=== PATIENT | female | born 1995 | race Caucasian/White ===

== ENCOUNTER 2019-06-03 16:56 | Emergency (ER) | payer BC, OTHER ==
[2019-06-03] MEDS ORDERED: LIDOCAINE 1%/EPINEPHRINE INJ 20 ML VIAL INJ ONE (18:36)
[2019-06-03] MEDS ORDERED: DIPH/PERTUSS(ACELL)/TETANUS VAC/PF 0.5 ML SYR (>=10YO) IM ONE (18:40)
--- NOTE | 2019-06-03 18:40 | ER Document Report ---
ED Extremity Problem, Lower - General Chief Complaint: Laceration Stated Complaint: LACERATION TO LEFT FOOT Time Seen by Provider: 06/03/19 18:25 TRAVEL OUTSIDE OF THE [place] IN LAST 30 DAYS: No - HPI Notes: 23-year-old female to the emergency department with complaints of a laceration to the top of her left foot that occurred last night at approximately 11 PM. She states she dropped a glass on and it cut it. She states she did not have a ride so she did not get seen until this evening. She attempted to go to urgent care first and when she got there they sent her here for further evaluation and repair. She states that she is not up-to-date on her tetanus immunization. She states that every time she tries to walk on it she has pain and it bleeds. She denies any other complaints. - Related Data Allergies/Adverse Reactions: No Known Allergies Allergy (Unverified 06/03/19 18:20) Past Medical History - General Information source: Patient - Social History Smoking Status: Current Every Day Smoker Frequency of alcohol use: None Drug Abuse: None Lives with: Spouse/Significant other Family History: Reviewed & Not Pertinent Patient has suicidal ideation: No Patient has homicidal ideation: No Review of Systems - Review of Systems Constitutional: denies: Chills, Fever EENT: No symptoms reported Cardiovascular: denies: Chest pain, Palpitations, Heart racing, Orthopnea, Synco pe, Dizziness, Lightheaded Respiratory: denies: Cough, Short of breath Gastrointestinal: denies: Abdominal pain, Diarrhea, Nausea, Vomiting Genitourinary: No symptoms reported Musculoskeletal: See HPI, Joint pain Skin: Other - Laceration to the left foot Hematologic/Lymphatic: No symptoms reported Neurological/Psychological: No symptoms reported -: Yes All other systems reviewed and negative Physical Exam - Vital signs Vitals: Temp Pulse Resp BP Pulse Ox 98.2 F 76 16 112/50 L 100 06/03/19 17:51 06/03/19 17:51 06/03/19 17:51 06/03/19 17:51 06/03/19 17:51 Interpretation: Normal - General General appearance: Appears well, Alert In distress: None - HEENT Head: Normocephalic, Atraumatic Eyes: Normal Pupils: PERRL Ears: Normal External canal: Normal Tympanic membrane: Normal Sinus: Normal Nasal: Normal Mouth/Lips: Normal Pharynx: Normal Neck: Normal - Respiratory Respiratory status: No respiratory distress Chest status: Nontender Breath sounds: Normal. No: Nonproductive cough, Rales, Rhonchi, Wheezing Chest palpation: Normal - Cardiovascular Rhythm: Regular Heart sounds: Normal auscultation Murmur: No - Abdominal Inspection: Normal Distension: No distension Bowel sounds: Normal Tenderness: Nontender Organomegaly: No organomegaly - Extremities General lower extremity: Tender - There is tenderness to palpation over the top of the left foot where patient has her laceration. There is no evidence for acute foreign body. There is no edema or deformity to suggest fracture. DP pulses are intact and equal. 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 It is approximately 3.5 cm in length and slightly elliptical in shape. He can see where he keeps pulling apart every time the patient walks and oozing some blood. On initial evaluation there is a lot of tenderness to palpation over the site but no duarte foreign body is visualized. Course - Re-evaluation Re-evalutation: 06/03/19 19:29 Impression: Left foot laceration. Patient tolerated repair well. 8 sutures were placed. Patient's injury happened at 11 PM last night which is within range for suture appointment within 24 hours but she is a little delayed so we will send home with Keflex to take. Also sent home with Naprosyn for pain. She requests crutches for the first several days so that she will not potentially burst the sutures. Suture removal in 10 days. - Vital Signs Vital signs: Temp Pulse Resp BP Pulse Ox 98.2 F 76 16 112/50 L 100 06/03/19 17:51 06/03/19 17:51 06/03/19 17:51 06/03/19 17:51 06/03/19 17:51 - Diagnostic Test Radiology reviewed: Image reviewed, Reports reviewed Procedures - Laceration/Wound Repair Left Dorsal Foot Time completed: 19:32 Wound length (cm): 3.5 Wound's Depth, Shape: Superficial Laceration pre-procedure: Sterile PPE donned, Sterile drapes applied, Shur-Clens applied Anesthetic type: 1% Lidocaine w/epi Volume Anesthetic (mLs): 3 Wound explored: Clean, No foreign body removed Irrigated w/ Saline (mLs): 50 Wound Debrided: Minimal Wound Repaired With: Sutures Suture Size/Type: 4:0 Number of Sutures: 8 - simple interrupted Post-procedure wound care: Sterile dressing applied Post-procedure NV exam normal: Yes Complications: No Discharge - Discharge Clinical Impression: Foot pain, left Foot laceration Qualifiers: Encounter type: initial encounter Laterality: left Qualified Code(s): S91.312A - Laceration without foreign body, left foot, initial encounter Condition: Stable Disposition: HOME, SELF-CARE Instructions: Laceration Care ([facility]), Tetanus Immunization Given ([facility]), Prophylactic Antibiotic ([facility]) Additional Instructions: COMPLETE ALL ANTIBIOTICS. KEEP WOUND CLEAN AND DRY. RETURN IF WORSENING PAIN, FEVERS, REDNESS, SWELLING, OR PUS DRAINING. Prescriptions: Cephalexin Monohydrate [Keflex 500 mg Capsule] 500 mg PO QID #40 capsule Naproxen [Naprosyn 375 Mg Tablet] 375 mg PO BID #20 tablet Forms: Return to Work Referrals: [facility] [Provider Group] - Follow up in 1 week
--- NOTE | 2019-06-03 19:15 | RADIOLOGY REPORT (SQ) ---
EXAM DESCRIPTION: FOOT LEFT COMPLETE COMPLETED DATE/TIME: 06/03/2019 7:04 pm REASON FOR STUDY: foot laceration, eval foriegn body COMPARISON: None. NUMBER OF VIEWS: Three views. TECHNIQUE: AP, lateral and oblique radiographic images acquired of the left foot. LIMITATIONS: None. FINDINGS: MINERALIZATION: Normal. BONES: No acute fracture or dislocation. No worrisome bone lesions. JOINTS: No effusions. SOFT TISSUES: No soft tissue swelling. No foreign body. OTHER: No other significant finding. IMPRESSION: No radiopaque soft tissue foreign body. No acute osseous abnormality. TECHNICAL DOCUMENTATION: JOB ID: [id number] XO1- All Rights Reserved Reading location - IP/workstation name: [email or web address]
[2019-06-03 20:03] VITALS: BP 105/58
== END 2019-06-03 20:15 | disposition home or self-care (01) ==
LOC: ER 16:56
DX: S91.312A Laceration without foreign body, left foot, initial encounter (principal); W25.XXXA Contact with sharp glass, initial encounter; Y93.G1 Activity, food preparation and clean up; F17.200 Nicotine dependence, unspecified, uncomplicated
CPT/HCPCS: 99282; 90471; 73630; 90715; 12002; J3490

== ENCOUNTER → 2019-11-03 | Outpatient (CLI) | payer OTHER ==
[2019-11-03 13:20] VITALS: BP 105/53
--- NOTE | 2019-11-03 13:20 | ER RDC ASSESSMENT REPORT ---
Intake - In the Last 14 days Have you traveled outside [place]?: No Have you been in close contact with someone CONFIRMED: No Worked in Healthcare?: No - Symptoms Subjective Fever(Ideal feverish): No Chills: No Muscule Aches: No Runny Nose: Yes Sore Throat: Yes Cough (New or worsening chronic cough): Yes Shortness of breath: Yes Nausea or Vomiting: No Headache: Yes Abdominal Pain: No Diarrhea(3 or more loose stools in last 24 hours): No - Do you have any of the following Chronic lung disease: Asthma or emphysema or COPD: No Cystic Fibrosis: No Diabetes: No High Blood Pressure: No Cardiovascular Disease: No Chronic Kidney Disease: No Chronic Liver Disease: No Chronic blood disorder like Sickle Cell Disease: No Weak immune system due to disease or medication: No Neurologic condition that limits movement: No Developmental delay - Moderate to Severe: No Recent (within past 2 weeks) or current : No Morbid Obesity (>100 pounds over ideal weight): No - Objective Temperature: 97.7 F Pulse Rate: 71 Respiratory Rate: 20 Blood Pressure: 105/53 O2 Sat by Pulse Oximetry: 99 Objective: Patient is a well-appearing 24-year-old female who presents today for COVID-19 screening. Disposition: Home; Selfcare General - General Stated Complaint: Upper respiratory symptoms x3 days Mode of Arrival: Ambulatory Information source: Patient Notes: The patient was evaluated during the global COVID-19 pandemic. That diagnosis was suspected/considered upon initial presentation. Their evaluation, treatment, and testing was consistent with current guidelines for patients who present with complaints or symptoms that may be related to COVID-19. - HPI Patient complains to provider of: Upper respiratory symptoms Onset: Other - Days Onset/Duration: Persistent Quality of pain: Achy Severity: Mild Pain Level: 2 Context: Generalized body aches Associated symptoms: Body/muscle aches, Nonproductive cough, Headache, Rhinnorhea, Shortness of breath, Sore throat Exacerbated by: Denies Relieved by: Denies Similar symptoms previously: No Recently seen / treated by doctor: No - Related Data Allergies/Adverse Reactions: No Known Allergies Allergy (Unverified 06/03/19 18:20) Past Medical History - Social History Smoking Status: Current Some Day Smoker Cigarette use (# per day): Yes - 1-2 every other day Chew tobacco use (# tins/day): No Smoking Education Provided: Yes Frequency of alcohol use: Occasional Drug Abuse: None 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 That diagnosis was suspected/considered upon initial presentation. Their evaluation, treatment, and testing was consistent with current guidelines for patients who present with complaints or symptoms that may be related to COVID-19. Diagnostic Results Laboratory Results: Patient advised at this time they are considered a Person Under Investigation (PUI) for the COVID-19 Coronavirus. They have been made aware it is currently taking 3-5 days to receive their results, and [facility] will call to advise them of their result, whether it is POSITIVE or NEGATIVE. Patient Education/Counseling Counseling/Education: Patient presents with upper respiratory symptoms worrisome for possible COVID- 19. Patient does not have symptoms worrisome as an emergency such as difficulty breathing, shortness of breath, chest pain, pressure, confusion or cyanosis. Patient appears suitable for discharge as they are not of an advanced age, do not have any chronic medical conditions such as diabetes, CAD, immune defici ency, chronic lung disease or chronic kidney disease. Patient's vital signs are stable and patient is nontoxic in appearance. Good return precautions have been discussed with patient, patient verbalized understanding and is agreeable with discharge plan of care at this time. Patient provided COVID-19 discharge instructions to include: As a person under investigation for COVID-19, the [place] department of Health and Human Services, division of public health advises you to adhere to the following guidance until your test results are reported to you. If your test result is positive, you will receive additional information from your provider and your local health department at that time. Remain at home until you are cleared by the health provider or public health authorities. Keep a log of visitors to your home, notify any visitors to your home of your isolation status. If you plan to move to a new address or leave the county, notify the local health department in your County. Call your doctor or seek care if you have an urgent medical need. Before seeking medical care, call ahead to get instructions from the provider before arriving at the medical office clinic or hospital. Notify them that you are being tested for the virus that causes COVID-19 so that arrangements can be made, as necessary, to prevent transmission to others in the healthcare setting. Next, notify the local health department in your county. If a medical emergency arises and you need to call 911, inform dispatch and the first responders that you are being tested for the virus that causes COVID-19. Next, notify the local health department in your county. Patient provided education on smoking cessation and the harmful effects of smoking, especially in the presence of Co-morbid conditions such as Hypertension, Diabetes, and/or other chronic illnesses. Patient verbalized understanding of smoking cessation education, and the increased health benefits of quitting. Guidance for worsening S/SX: For worsening symptoms, patient has been advised to contact their Primary Care Provider, or go to the nearest Emergency Department. RDC Discharge - Discharge Clinical Impression: COVID-19 Screening URI (upper respiratory infection) Qualifiers: URI type: unspecified URI Qualified Code(s): J06.9 - Acute upper respiratory infection, unspecified Condition: Stable Disposition: Home; Selfcare
== END ==
LOC: RDC 12:04
PROVIDERS: ATTEND Nurse Practitioner Family
DX: Z20.828 Contact with and (suspected) exposure to other viral communicable diseases (principal)
CPT/HCPCS: 87635; C9803; 99201; 99211

== ENCOUNTER → 2020-06-06 | Outpatient (CLI) | payer OTHER ==
--- NOTE | 2020-06-06 14:01 | ER RDC ASSESSMENT REPORT ---
Intake - In the Last 14 days Have you traveled outside [place]?: No Have you been in close contact with someone CONFIRMED: No Worked in Healthcare?: No - Symptoms Subjective Fever([place] feverish): Yes Chills: Yes Muscule Aches: Yes Runny Nose: Yes Sore Throat: Yes Cough (New or worsening chronic cough): Yes Shortness of breath: No Nausea or Vomiting: No Headache: Yes Abdominal Pain: No Diarrhea(3 or more loose stools in last 24 hours): No - Do you have any of the following Chronic lung disease: Asthma or emphysema or COPD: No Cystic Fibrosis: No Diabetes: No High Blood Pressure: No Cardiovascular Disease: No Chronic Kidney Disease: No Chronic Liver Disease: No Chronic blood disorder like Sickle Cell Disease: No Weak immune system due to disease or medication: No Neurologic condition that limits movement: No Developmental delay - Moderate to Severe: No Recent (within past 2 weeks) or current : No Morbid Obesity (>100 pounds over ideal weight): No Obesity Comment: Height 5 feet 4 inches weight 145 pounds - Objective Temperature: 98.1 F Pulse Rate: 77 Respiratory Rate: 18 Blood Pressure: 114/58 O2 Sat by Pulse Oximetry: 98 Objective: Given above, testing performed: If Testing Performed: Test Specimen Type Sent to General - General Information source: Patient Notes: Patient here at [facility] for Covid testing patient denies any known positive exposure to Covid that she is aware of started to have symptoms yesterday which included fever chills muscle aches runny nose sore throat and cough patient also has a headache. 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 Patient's PCP is with [facility] in [place] and has not notified them of her recent illness. - Related Data Allergies/Adverse Reactions: No Known Allergies Allergy (Unverified 06/03/19 18:20) Past Medical History - General Information source: Patient - Social History Smoking Status: Never Smoker Family History: Reviewed & Not Pertinent Physical Exam - General General appearance: Appears well, Alert In distress: None Notes: PHYSICAL EXAMINATION: GENERAL: Well-appearing and in no acute distress. HEAD: Atraumatic, normocephalic. EYES: sclera anicteric, conjunctiva are normal. ENT: nares patent. Moist mucous membranes. Tonsils red no exudate no swelling NECK: Normal range of motion, supple without lymphadenopathy LUNGS: CTAB and equal. No wheezes rales or rhonchi. Respirations even and unlabored lung sounds clear HEART: Regular rate and rhythm without murmurs ABDOMEN: Soft, nontender, normal bowel sounds, no guarding. EXTREMITIES: Normal range of motion, no pitting edema. No cyanosis. s NEUROLOGICAL: Cranial nerves grossly intact. Normal speech. Normal gait. PSYCH: Normal mood, normal affect. SKIN: Warm, Dry, normal turgor, no rashes or lesions noted Diagnostic Results Laboratory Results: Pending strep culture. Pending Covid testing results. Patient provided instruction regarding Covid to include: As a person under investigation for Covid 19, the [facility] of Health and Human Services, division of public health advises you to adhere to the following guidance until your test results are reported to you. If your test result is positive, you will receive additional information from your provider and your local health department at that time. Remain at home until you are cleared by the health provider or public health authorities. Keep a log of visitors to your home, notify any visitors to your home of your isolation status. If you plan to move to a new address or leave the county, notify the local health department in your County. Call your doctor or seek care if you have an urgent medical need. Before seeking medical care, call ahead to get instructions from the provider before arriving at the medical office clinic or hospital. Notify them that you are being tested for the virus that causes Covid 19 so that arrangements can be made, as necessary, to prevent transmission to others in the healthcare setting. Next, notify the local health department in your county. If a medical emergency arises and you need to call 911, inform the first responders that you are being tested for the virus that causes Covid 19. Next, notify the local health department in your county. Patient Education/Counseling Counseling/Education: Patient presents with upper respiratory symptoms worrisome for possible Covid 19. Patient does not have emergency worring symptoms such as difficulty breathing, shortness of breath, chest pain, pressure, confusion or cyanosis. Patient appears suitable for discharge. Patient instructed to follow-up with her PCP at [facility] in [place]. To ED for persistent or worsening symptoms patient's vital signs are stable and patient is nontoxic in appearance. Good return precautions have been discussed with patient, patient verbalized understanding and is agreeable with discharge plan of care at this time. RDC Discharge - Discharge Condition: Stable Disposition: Home; Selfcare
[2020-06-06 14:30] VITALS: BP 114/58
[2020-06-06 15:16] LABS: A TYPE INFLUENZA AG NEGATIVE (NEGATIVE)
[2020-06-06 15:27] LABS: B INFLUENZA AG NEGATIVE (NEGATIVE)
== END ==
LOC: RDC 13:32
PROVIDERS: ATTEND Nurse Practitioner Family
DX: Z20.822 Contact with and (suspected) exposure to COVID-19 (principal); R50.9 Fever, unspecified; R05 Cough; J02.9 Acute pharyngitis, unspecified; M79.10 Myalgia, unspecified site; R51.9 Headache, unspecified; R09.89 Other specified symptoms and signs involving the circulatory and respiratory systems
CPT/HCPCS: 87070; 87880; 87804; U0003; C9803; 87635; 99211